=== PATIENT | female | born 1950 | race African-American/Black ===

== ENCOUNTER 2018-12-25 08:01 | Inpatient (IN) | payer MEDICARE, BC ==
[~2018-12-25] VITALS: Ht 162.6 cm; Wt 77.1 kg
[2018-12-25] MEDS ORDERED: SODIUM CHLORIDE 0.9% 1,000 ML IV ONE (08:43)
[2018-12-25] MEDS ORDERED: ONDANSETRON HCL 4MG/2ML INJ IV ONE (08:45)
[2018-12-25] MEDS ORDERED: MECLIZINE 25MG TABLET PO ONE (08:45)
[2018-12-25 09:01] LABS: BASOPHILS % 0.4 % (0.0-2.0); EOSINOPHILS % 0.7 % (0.0-5.0); HEMATOCRIT. 37.6 % (36.0-48.0); HEMOGLOBIN. 12.2 g/dL (12.0-16.0); LYMPHOCYTES % 35.4 % (20.0-50.0); MEAN CORPUSCULAR HEMOGLOBIN 32.3 pg (28.0-32.0); MEAN CORPUSCULAR VOLUME 99.9 fL (81.0-99.0); MEAN PLATELET VOLUME 9.4 fl (7.4-10.4); NEUTROPHILS % 57.5 % (40.0-76.0); PLATELET 227 x1000/uL (130-400); RED BLOOD CELL COUNT 3.76 mill/uL (4.2-5.4); RED CELL DISTRIBUTION WIDTH 13.3 % (11.6-14.6)
[2018-12-25 09:07] LABS: CHLORIDE 107 mEq/L (98-107)
[2018-12-25 16:00] VITALS: BP 153/79
[2018-12-25] MEDS ORDERED: ONDANSETRON HCL 4MG/2ML INJ IV PRN (16:15)
[2018-12-25] MEDS ORDERED: ACETAMINOPHEN 325MG TABLET PO PRN (16:15)
[2018-12-25] MEDS ORDERED: GUAIFENESIN 200MG/10ML SUGAR FREE UDC PO PRN (16:15)
[2018-12-25] MEDS ORDERED: DOCUSATE SODIUM 100MG CAPSULE PO PRN (16:15)
[2018-12-25] MEDS ORDERED: HYDROCODONE/ACETAMINOPHEN 5/325MG TABLET PO PRN (16:15)
[2018-12-25 17:00] VITALS: BP 153/79
[2018-12-25] MEDS: SODIUM CHLORIDE 0.45% 1,000 ML IV SCH (18:00)
[2018-12-25] MEDS: ENOXAPARIN 40MG/0.4ML SYR SUBCUT SCH (19:05)
[2018-12-25] MEDS ORDERED: LEVO100T9 PO (19:41)
[2018-12-25] MEDS ORDERED: LOSA100T32 PO (19:41)
[2018-12-25] MEDS ORDERED: ATOR40TA70 PO (19:41)
[2018-12-25] MEDS ORDERED: METF500T PO (19:41)
[2018-12-25] MEDS ORDERED: COR25 PO (19:41)
[2018-12-25 20:00] VITALS: BP 162/78
[2018-12-25] MEDS: CLONIDINE 0.1MG TABLET PO PRN (21:45)
[2018-12-26] VITALS: BP 121/70
[2018-12-26 04:00] VITALS: BP 139/79
[2018-12-26 08:00] VITALS: BP 173/84
[2018-12-26 09:02] LABS: BASOPHILS % 0.7 % (0.0-2.0); EOSINOPHILS % 1.6 % (0.0-5.0); HEMATOCRIT. 34.2 % (36.0-48.0); HEMOGLOBIN. 11.3 g/dL (12.0-16.0); LYMPHOCYTES % 62.1 % (20.0-50.0); MEAN CORPUSCULAR HEMOGLOBIN 32.7 pg (28.0-32.0); MEAN CORPUSCULAR VOLUME 99.1 fL (81.0-99.0); MONOCYTES % 8.2 % (2.0-8.0); NEUTROPHILS % 27.4 % (40.0-76.0); PLATELET 219 x1000/uL (130-400); RED BLOOD CELL COUNT 3.45 mill/uL (4.2-5.4); RED CELL DISTRIBUTION WIDTH 13.1 % (11.6-14.6)
[2018-12-26 09:03] LABS: CHLORIDE 111 mEq/L (98-107)
[2018-12-26] MEDS: MECLIZINE 25MG TABLET PO PRN (09:12)
[2018-12-26] MEDS: SODIUM CHLORIDE 0.45% 1,000 ML IV SCH ×2 (09:13→21:51)
[2018-12-26] MEDS: CLONIDINE 0.1MG TABLET PO PRN (09:13)
[2018-12-26 09:14] LABS: LDL CHOLESTEROL 44 mg/dL (5-100)
[2018-12-26 09:16] LABS: HDL CHOLESTEROL 75 mg/dL (40-59)
[2018-12-26] MEDS: LEVOTHYROXINE SODIUM 100MCG TABLET PO SCH (10:32)
[2018-12-26] MEDS: METFORMIN HCL 500MG TABLET PO SCH ×2 (10:32→17:57)
[2018-12-26] MEDS: ATORVASTATIN CALCIUM 40MG TABLET PO SCH (10:33)
[2018-12-26] MEDS: LOSARTAN POTASSIUM 100 MG TABLET PO SCH (10:33)
[2018-12-26 12:00] VITALS: BP_SYST 127; BP_SYST 132; BP_DIAS 67; BP_DIAS 71; BP_DIAS 83
[2018-12-26 16:00] VITALS: BP_SYST 126; BP_SYST 132; BP_DIAS 67; BP_DIAS 76; BP_DIAS 82
[2018-12-26] MEDS: ENOXAPARIN 40MG/0.4ML SYR SUBCUT SCH (18:00)
[2018-12-26 19:52] VITALS: BP_SYST 124; BP_SYST 128; BP_SYST 129; BP_DIAS 76; BP_DIAS 80; BP_DIAS 83
[2018-12-27] VITALS (7 sets, daily range): BP systolic 125–183; BP diastolic 69–95
[2018-12-27] MEDS: METFORMIN HCL 500MG TABLET PO SCH ×2 (09:01→18:07)
[2018-12-27] MEDS: ATORVASTATIN CALCIUM 40MG TABLET PO SCH (09:01)
[2018-12-27] MEDS: LEVOTHYROXINE SODIUM 100MCG TABLET PO SCH (09:01)
[2018-12-27] MEDS: LOSARTAN POTASSIUM 100 MG TABLET PO SCH (09:01)
[2018-12-27] MEDS: CLONIDINE 0.1MG TABLET PO PRN ×2 (13:07→21:28)
[2018-12-27 17:35] LABS: CLARITY URINE CLEAR (CLEAR); COLOR URINE YELLOW (YELLOW); KETONES URINE NEGATIVE (NEGATIVE); LEUKOCYTE ESTERASE URINE NEGATIVE (NEGATIVE); NITRITE URINE NEGATIVE (NEGATIVE); OCCULT BLOOD URINE NEGATIVE (NEGATIVE); PROTEIN URINE NEGATIVE (NEGATIVE); UROBILINOGEN URINE 0.2 E.U./dL (0.2-1.0)
[2018-12-27] MEDS: ENOXAPARIN 40MG/0.4ML SYR SUBCUT SCH (18:08)
[2018-12-27] MEDS ORDERED: DEXTROSE 50% WATER 50ML SYRINGE IV PRN (19:00)
[2018-12-27] MEDS: INSULIN LISPRO 100 UNITS/ML SUBCUT SCH (21:00)
[2018-12-27] MEDS: MECLIZINE 25MG TABLET PO PRN (21:28)
[2018-12-27] MEDS: BLOOD SUGAR DIAGNOSTIC STRIP TEST SCH (21:35)
[2018-12-28] VITALS: BP 163/83
[2018-12-28 06:00] VITALS: BP 154/82
[2018-12-28] MEDS: BLOOD SUGAR DIAGNOSTIC STRIP TEST SCH (06:31)
[2018-12-28] MEDS: INSULIN LISPRO 100 UNITS/ML SUBCUT SCH (06:32)
[2018-12-28 08:00] VITALS: BP 158/80
[2018-12-28] MEDS: LEVOTHYROXINE SODIUM 100MCG TABLET PO SCH (09:29)
[2018-12-28] MEDS: METFORMIN HCL 500MG TABLET PO SCH (09:29)
[2018-12-28] MEDS: LOSARTAN POTASSIUM 100 MG TABLET PO SCH (09:29)
[2018-12-28] MEDS: ATORVASTATIN CALCIUM 40MG TABLET PO SCH (09:29)
[2018-12-28 09:50] VITALS: BP 158/80
[2018-12-28] MEDS ORDERED: CLON-457 PO (10:19)
== END 2018-12-28 10:45 | disposition home or self-care (01) | DRG 866 ==
LOC: ER 08:01 → ENRESERV 14:11 → 7WST 14:48
PROVIDERS: ADMIT Hospitalist; ATTEND Hospitalist
DX: B34.9 Viral infection, unspecified (principal); E03.9 Hypothyroidism, unspecified; E11.9 Type 2 diabetes mellitus without complications; I10 Essential (primary) hypertension; Z88.0 Allergy status to penicillin; R26.9 Unspecified abnormalities of gait and mobility; Z79.84 Long term (current) use of oral hypoglycemic drugs
CPT/HCPCS: 36415; 71045; 80061; 81003; 82962; 83880; 84443; 84484; 93005; 93970; 97162; 99285; J1650; J2405; J7030; J8597